=== PATIENT | female | born 1970 | race American Indian/Alaskan Native ===

== ENCOUNTER 2017-10-23 00:20 | Emergency (ER) | payer BC ==
--- NOTE | 2017-10-23 00:39 | ED PDOC ---
Arrival/HPI - General Chief Complaint: High Blood Pressure Time Seen by Provider: 10/23/17 00:26 Historian: Patient - History of Present Illness Narrative History of Present Illness (Text): 10/23/17 00:32 Malissa Saenz is a 47 year old female, whose past medical history includes hypertension and asthma, who presents to the Emergency department complaining of elevated blood pressure tonight. Patient states while at work earlier tonight she began experiencing left arm paresthesias and took her blood pressure , which she noted to be elevated in the 180s systolic. Patient notes she regularly takes Labetalol, Lisinopril, and Norvasc but forgot to take her medications during the day. Patient states she then took Labetalol and Lisinopril, but did not take Norvasc. Patient denies any headache, dizziness, vision changes, chest pain, shortness of breath, or any other complaints. Time/Duration: Other (tonight) Symptom Onset: Gradual Activities at Onset: Light Context: Work Past Medical History - Provider Review Nursing Documentation Reviewed: Yes - Infectious Disease Hx of Infectious Diseases: None - Cardiac Hx Hypertension: Yes - Pulmonary Hx Asthma: Yes - Psychiatric Hx Substance Use: No - Anesthesia Hx Anesthesia: No Family/Social History - Physician Review Nursing Documentation Reviewed: Yes Family/Social History: Unknown Family HX Smoking Status: Never Smoked Hx Alcohol Use: Yes Frequency of alcohol use: Socially Hx Substance Use: No Allergies/Home Meds Allergies/Adverse Reactions: Allergies No Known Allergies Allergy (Verified 10/23/17 00:30) Home Medications: Home Meds Medication Instructions Recorded Confirmed Lisinopril [Zestril] 20 mg PO DAILY 10/23/17 10/23/17 Review of Systems - Physician Review All systems were reviewed & negative as marked: Yes - Review of Systems Constitutional: Normal. absent: Fevers Eyes: Normal ENT: Normal Respiratory: Normal. absent: SOB, Cough Cardiovascular: Other (+high blood pressure). absent: Chest Pain Gastrointestinal: Normal. absent: Abdominal Pain, Diarrhea, Nausea, Vomiting Genitourinary Female: Normal. absent: Dysuria, Frequency, Hematuria, Urine Output Changes Musculoskeletal: Normal. absent: Back Pain, Neck Pain Skin: Normal. absent: Rash Neurological: Other (+left arm parethesias). absent: Dizziness Endocrine: Normal Hemo/Lymphatic: Normal Psychiatric: Normal Physical Exam Vital Signs Reviewed: Yes Vital Signs Temp Pulse Resp BP Pulse Ox 10/23/17 02:28 72 16 171/92 H 100 10/23/17 01:51 72 16 172/76 H 100 10/23/17 01:01 194/106 H 10/23/17 00:36 98.0 F 66 17 194/106 H 100 Temperature: Afebrile Blood Pressure: Hypertensive Pulse: Regular Respiratory Rate: Normal Appearance: Positive for: Well-Appearing, Non-Toxic, Comfortable Pain Distress: None Mental Status: Positive for: Alert and Oriented X 3 - Systems Exam Head: Present: Atraumatic, Normocephalic Pupils: Present: PERRL Extroacular Muscles: Present: EOMI Conjunctiva: Present: Normal Mouth: Present: Moist Mucous Membranes Neck: Present: Normal Range of Motion. No: Meningeal Signs, MIDLINE TENDERNESS , Paraspinal Tenderness Respiratory/Chest: Present: Clear to Auscultation, Good Air Exchange. No: Respiratory Distress, Accessory Muscle Use Cardiovascular: Present: Regular Rate and Rhythm, Normal S1, S2. No: Murmurs Abdomen: No: Tenderness, Distention, Peritoneal Signs Back: Present: Normal Inspection. No: CVA Tenderness, Midline Tenderness, Paraspinal Tenderness Upper Extremity: Present: Normal Inspection, Normal ROM, NORMAL PULSES, Neurovascularly Intact, Capillary Refill < 2s. No: Cyanosis, Edema, Tenderness , Swelling, Erythema, Temperature Abnormalties, Deformity Lower Extremity: Present: Normal Inspection. No: Edema Neurological: Present: GCS=15, CN II-XII Intact, Speech Normal, Motor Func Grossly Intact, Normal Sensory Function, Normal Cerebellar Funct, Memory Normal Skin: Present: Warm, Dry, Normal Color. No: Rashes Psychiatric: Present: Alert, Oriented x 3, Normal Insight, Normal Concentration Medical Decision Making ED Course and Treatment: 10/23/17 00:32 Impression: 47 year old female complaining of high blood pressure and left arm paresthesias tonight Differential Diagnosis included but are not limited to: hypertension Plan: -- CT Head w/o contrast -- EKG -- Norvasc -- Reassess and disposition Progress Notes: 10/23/17 00:41 Reviewed EKG, NSR at [address]-segment elevations or depressions, no T-wave inversions, normal intervals. 10/23/17 01:52 CT Head reviewed, shows: Brain: There is no evidence of intracranial hemorrhage, mass lesion, or mass effect. No abnormal extra-axial or parenchymal fluid collections. The posterior fossa is unremarkable. Ventricles: The ventricles and basilar cisterns are unremarkable. Bones/joints: The bony calvarium is unremarkable. Sinuses: Mild mucosal thickening present in the ethmoid sinuses. Mastoid air cells: Normal as visualized. No mastoid effusion. Soft tissues: Normal. IMPRESSION: There is no acute intracranial process. - RAD Interpretation Radiology Orders: 10/23/17 00:33 HEAD W/O CONTRAST [CT] Stat Refrigerating Machine Operator: Radiologist - EKG Interpretation Interpreted by ED Physician: Yes Type: 12 lead EKG - Medication Orders Current Medication Orders: Discontinued Medications Amlodipine Besylate (Norvasc) 10 mg PO STAT STA Stop: 10/23/17 00:34 Last Admin: 10/23/17 01:01 Dose: 10 mg MAR Blood Pressure Document 10/23/17 01:01 IT (Rec: 10/23/17 01:01 IT [id number]) Blood Pressure Blood Pressure (100/60-150/90 mm Hg) 194/106 - Scribe Statement The provider has reviewed the documentation as recorded by the Scribe Annmarie Carter All medical record entries made by the Scribe were at my direction and personally dictated by me. I have reviewed the chart and agree that the record accurately reflects my personal performance of the history, physical exam, medical decision making, and the department course for this patient. I have also personally directed, reviewed, and agree with the discharge instructions and disposition. Disposition/Present on Arrival - Present on Arrival Any Indicators Present on Arrival: No History of DVT/PE: No History of Uncontrolled Diabetes: No Urinary Catheter: No History of Decub. Ulcer: No History Surgical Site Infection Following: None - Disposition Have Diagnosis and Disposition been Completed?: Yes Diagnosis: Hypertension, Paresthesia Disposition: HOME/ ROUTINE Disposition Time: 02:41 Patient Plan: Discharge Condition: GOOD Discharge Instructions (ExitCare): Paresthesias (DC), High Blood Pressure (DC) Additional Instructions: Maintain your scheduled prescribed doses of medications/follow up with your doctor this week Forms: [employer] ([place])
[2017-10-23 01:52] VITALS: PULSE 72; RESP 16
[2017-10-23 02:48] VITALS: BP 168/86; TEMP 98.2; O2SAT 99
--- NOTE | 2017-10-23 08:33 | CT ---
Date of service: 10/23/2017 PROCEDURE: CT HEAD WITHOUT CONTRAST. HISTORY: paresthesias COMPARISON: None available. TECHNIQUE: Axial computed tomography images were obtained through the head/brain without intravenous contrast. Radiation dose: Total exam DLP = 760.87 mGy-cm. This CT exam was performed using one or more of the following dose reduction techniques: Automated exposure control, adjustment of the mA and/or kV according to patient size, and/or use of iterative reconstruction technique. FINDINGS: HEMORRHAGE: No intracranial hemorrhage. BRAIN: Normal mott-white matter differentiation and density are appreciated throughout the cerebrum and cerebellum with the brainstem appearing unremarkable as well. There is no mass effect. There is no suspicious extra-axial fluid collection and the midline brain anatomy appears diffusely unremarkable. VENTRICLES: Unremarkable. No hydrocephalus. CALVARIUM: Unremarkable. PARANASAL SINUSES: Unremarkable as visualized. No significant inflammatory changes. MASTOID AIR CELLS: Unremarkable as visualized. No inflammatory changes. OTHER FINDINGS: None. IMPRESSION: Unremarkable noncontrast head CT. Concordant preliminary report from [facility], 10/23/2017.
--- NOTE | 2017-10-23 19:25 | CARD ---
APPROVED REPORT Date of service: 10/23/2017 EKG Measurement Heart [id number] [id number] <Conclusion> Normal sinus rhythm Normal ECG
== END 2017-10-23 02:47 | disposition home or self-care (01) ==
LOC: ED 00:20 → MERGE 00:20 → ED 02:47
DX: I10 Essential (primary) hypertension (principal); R20.2 Paresthesia of skin

== ENCOUNTER 2018-05-03 19:09 | Emergency (ER) | payer OTHER ==
[2018-05-03 19:21] VITALS: TEMP 98.5
[2018-05-03] MEDS ORDERED: Labetalol 5 mg/ml Inj 20ML IV STA (19:24)
[2018-05-03] MEDS ORDERED: Labetalol 5mg/ml (4ml) IV STA (19:27)
--- NOTE | 2018-05-03 19:38 | ED PDOC ---
Arrival/HPI <Hussein Metzger - Last Filed: 05/03/18 20:06> - General Historian: Patient - History of Present Illness Narrative History of Present Illness (Text): 05/03/18 19:33 47F w/ pmh htn presenting for complaints of headache on going for a few hours prior to arrival. Patient reports that the headache is located on the Left side of her head located behind her eye. Described as a pressure/squeezing sensation. Symptoms are typically associated with elevation of her blood pressure. Of note pressures are elevated upon presentation; she reports she normally takes norvasc and clonidine for her pressure however she has been having difficulty obtaining medications recently. At time of evaluation patient denies any chest pain, sob, abd pain, n/v/d/c, hematuria/dysuria. Time/Duration: Prior to Arrival Symptom Onset: Gradual Quality: Aching, Pressure Severity Level: 9, Moderate <Jett Owens - Last Filed: 05/03/18 20:21> - General Chief Complaint: Headache Time Seen by Provider: 05/03/18 19:33 Past Medical History - Provider Review Nursing Documentation Reviewed: Yes - Infectious Disease Hx of Infectious Diseases: None - Cardiac Hx Hypertension: Yes - Pulmonary Hx Asthma: Yes - Psychiatric Hx Substance Use: No - Anesthesia Hx Anesthesia: No - Suicidal Assessment Feels Threatened In Home Enviroment: No <Jett Owens - Last Filed: 05/03/18 20:21> Family/Social History - Physician Review Nursing Documentation Reviewed: Yes Family/Social History: Unknown Family HX Smoking Status: 0 Hx Alcohol Use: No Hx Substance Use: No <Jett Owens - Last Filed: 05/03/18 20:21> Allergies/Home Meds <Hussein Metzger - Last Filed: 05/03/18 20:06> <Jett Owens - Last Filed: 05/03/18 20:21> Allergies/Adverse Reactions: Allergies No Known Allergies Allergy (Unverified 05/03/18 19:20) Home Medications: Home Meds Medication Instructions Recorded Confirmed amLODIPine [Norvasc] 1 tab PO DAILY 05/03/18 05/03/18 Review of Systems - Review of Systems Constitutional: Normal Eyes: Normal ENT: Normal Respiratory: Normal Cardiovascular: Normal Gastrointestinal: Normal Genitourinary Female: Normal Musculoskeletal: Normal Skin: Normal Neurological: Headache. absent: Dizziness, Focal Weakness Endocrine: Normal Hemo/Lymphatic: Normal Psychiatric: Normal <Jett Owens - Last Filed: 05/03/18 20:21> Physical Exam Vital Signs Temp Pulse Resp BP Pulse Ox 05/03/18 19:20 98.5 F 87 18 169/104 H 97 <Hussein Metzger - Last Filed: 05/03/18 20:06> Vital Signs Temp Pulse Resp BP Pulse Ox 05/03/18 19:20 98.5 F 87 18 169/104 H 97 Temperature: Afebrile Blood Pressure: Hypertensive Pulse: Regular Respiratory Rate: Normal Appearance: Positive for: Well-Appearing, Non-Toxic, Comfortable Pain Distress: None Mental Status: Positive for: Alert and Oriented X 3 - Systems Exam Head: Present: Atraumatic, Normocephalic Pupils: Present: PERRL Extroacular Muscles: Present: EOMI Conjunctiva: Present: Normal Mouth: Present: Moist Mucous Membranes Neck: Present: Normal Range of Motion Respiratory/Chest: Present: Clear to Auscultation, Good Air Exchange. No: Respiratory Distress, Accessory Muscle Use Cardiovascular: Present: Regular Rate and Rhythm, Normal S1, S2. No: Murmurs Abdomen: No: Tenderness, Distention, Peritoneal Signs Back: Present: Normal Inspection Upper Extremity: Present: Normal Inspection. No: Cyanosis, Edema Lower Extremity: Present: Normal Inspection. No: Edema Neurological: Present: GCS=15, CN II-XII Intact, Speech Normal Skin: Present: Warm, Dry, Normal Color. No: Rashes Psychiatric: Present: Alert, Oriented x 3, Normal Insight, Normal Concentration <Jett Owens - Last Filed: 05/03/18 20:21> Medical Decision Making - Lab Interpretations Lab Results: Total Bilirubin 0.5 mg/dL (0.2-1.3) 05/03/18 19:35 AST 17 U/L (14-36) 05/03/18 19:35 ALT 15 U/L (7-56) 05/03/18 19:35 Alkaline Phosphatase 123 U/L (38-126) 05/03/18 19:35 Total Protein 8.4 g/dL (5.8-8.3) H 05/03/18 19:35 Albumin 4.6 g/dL (3.0-4.8) 05/03/18 19:35 Globulin 3.8 gm/dL 05/03/18 19:35 Albumin/Globulin Ratio 1.2 (1.1-1.8) 05/03/18 19:35 Urine Color Yellow (YELLOW) 05/03/18 19:35 Urine Appearance Clear (CLEAR) 05/03/18 19:35 Urine pH 7.0 (4.7-8.0) 05/03/18 19:35 Ur Specific [place] 1.020 (1.005-1.035) 05/03/18 19:35 Urine Protein Negative mg/dL (<30 mg/dL) 05/03/18 19:35 Urine Glucose (UA) Negative mg/dL (NEGATIVE) 05/03/18 19:35 Urine Ketones Negative mg/dL (NEGATIVE) 05/03/18 19:35 Urine Blood Negative (NEGATIVE) 05/03/18 19:35 Urine Nitrate Negative (NEGATIVE) 05/03/18 19:35 Urine Bilirubin Negative (NEGATIVE) 05/03/18 19:35 Urine Urobilinogen 0.2 E.U./dL (<1 E.U./dL) 05/03/18 19:35 Ur Leukocyte Esterase Negative Michelle/uL (NEGATIVE) 05/03/18 19:35 05/03/18 19:35 05/03/18 19:35 Lab Results 05/03/18 19:35: Sodium 142, Potassium 3.7, Chloride 101, Carbon Dioxide 32, Anion Gap 12, BUN 17, Creatinine 0.8, Est GFR ( Amer) > 60, Est GFR (Non- Af Amer) > 60, Random Glucose 109, Calcium 9.8, Magnesium 2.0, Total Bilirubin 0.5, AST 17, ALT 15, Alkaline Phosphatase 123, Troponin I Pending, NT-Pro-B Natriuret Pep Pending, Total Protein 8.4 H, Albumin 4.6, Globulin 3.8, Albumin/Globulin Ratio 1.2 05/03/18 19:35: Urine Color Yellow, Urine Appearance Clear, Urine pH 7.0, Ur Specific [place] 1.020, Urine Protein Negative, Urine Glucose (UA) Negative, Urine Ketones Negative, Urine Blood Negative, Urine Nitrate Negative, Urine Bilirubin Negative, Urine Urobilinogen 0.2, Ur Leukocyte Esterase Negative 05/03/18 19:35: WBC 7.9, RBC 5.85, Hgb 13.3, Hct 41.7, MCV 71.3 L, MCH 22.7 L, MCHC 31.9, RDW 15.4 H, Plt Count 314, MPV 9.7, Neut % (Auto) 47.8 L, Lymph % (Auto) 44.2 H, [place] % (Auto) 4.6, Eos % (Auto) 3.0, Baso % (Auto) 0.4, Lymph # (Auto) 3.5 H, [place] # (Auto) 0.4, Eos # (Auto) 0.2, Baso # (Auto) 0.03, Absolute Neuts (auto) 3.78 I have reviewed the lab results: Yes - EKG Interpretation EKG Interpretation (Text): 05/03/18 20:07 NSR @ 71bpm No ST elevations No T wave inversions, flattened T waves Interpreted by ED Physician: Yes Type: 12 lead EKG - Medication Orders Current Medication Orders: Discontinued Medications Acetaminophen (Tylenol 325mg Tab) 650 mg PO STAT STA Stop: 05/03/18 19:25 Last Admin: 05/03/18 19:47 Dose: 650 mg Labetalol HCl (Trandate) 20 mg IV STAT STA Stop: 05/03/18 19:28 Last Admin: 05/03/18 19:47 Dose: 20 mg eMAR Start Stop Document 05/03/18 19:47 CNR (Rec: 05/03/18 19:47 CNR [id number]) Intravenous Solution Start Date 05/03/18 Start Time 19:45 End Date 05/03/18 End time 19:47 Total Infusion Time 2 Metoclopramide HCl (Reglan) 10 mg IVP STAT STA Stop: 05/03/18 19:25 Last Admin: 05/03/18 19:44 Dose: 10 mg IVP Administration Document 05/03/18 19:44 CNR (Rec: 05/03/18 19:47 CNR [id number]) Charges for Administration # of IVP Administrations 1 <Hussein Metzger - Last Filed: 05/03/18 20:06> ED Course and Treatment: 05/03/18 19:54 Impression: 47F w/ a PMH of HTN non complaint w/ RX presenting w/ complaints of headache and elevated pressures Plan: R/o end organ damage Control headache CBC/CMP UA Trop BNP Labetolol Tylenol Reglan Progress Notes: 05/03/18 20:16 CBC/CMP UA TROP BNP all within normal limits headache significantly improved Repeat blood pressure 148/78 Patient discharged w/ appropriate follow up instructions - Medication Orders Current Medication Orders: Discontinued Medications Acetaminophen (Tylenol 325mg Tab) 650 mg PO STAT STA Stop: 05/03/18 19:25 Labetalol HCl (Trandate) 20 mg IV STAT STA Stop: 05/03/18 19:28 Metoclopramide HCl (Reglan) 10 mg IVP STAT STA Stop: 05/03/18 19:25 <Jett Owens - Last Filed: 05/03/18 20:21> Disposition/Present on Arrival <Hussein Metzger - Last Filed: 05/03/18 20:06> - Present on Arrival Any Indicators Present on Arrival: No History of DVT/PE: No History of Uncontrolled Diabetes: No Urinary Catheter: No History of Decub. Ulcer: No History Surgical Site Infection Following: None - Disposition Have Diagnosis and Disposition been Completed?: Yes Disposition Time: 20:21 Patient Plan: Discharge <Jett Owens - Last Filed: 05/03/18 20:21> - Disposition Diagnosis: Hypertensive urgency Disposition: HOME/ ROUTINE Condition: IMPROVED Discharge Instructions (ExitCare): High Blood Pressure (DC), DASH Diet Prescriptions: amLODIPine [Norvasc] 10 mg PO DAILY #20 tab Referrals: FAMILY PROVIDER,NO [Primary Care Provider] - Follow up with primary Forms: [employer] for Smartphones ([place])
[2018-05-03 19:47] LABS: BASO # 0.03 K/mm3 (0.0-2.0); BASO % 0.4 % (0.0-3.0); EOS # 0.2 (0.0-0.7); HEMOGLOBIN 13.3 g/dL (12.0-16.0); LYMPH # 3.5 (1.2-3.4); LYMPH % 44.2 % (22.0-35.0); MEAN CELL VOLUME 71.3 fl (80.0-105.0); MEAN CORPUSCULAR HEMOGLOBIN 22.7 pg (25.0-35.0); MEAN CORPUSCULAR HGB CONC 31.9 g/dl (31.0-37.0); MEAN PLATELET VOLUME 9.7 fl (7.0-11.0); MONO # 0.4 (0.1-0.6); MONO % 4.6 % (1.0-6.0); RBC 5.85 10^6/uL (3.5-6.1); RED CELL DISTRIBUTION WIDTH 15.4 % (11.5-14.5); WHITE BLOOD COUNT 7.9 10^3/uL (4.5-11.0)
[2018-05-03 19:57] LABS: URINE APPEARANCE CLEAR (CLEAR); URINE BILIRUBIN NEGATIVE (NEGATIVE); URINE BLOOD NEGATIVE (NEGATIVE); URINE COLOR YELLOW (YELLOW); URINE GLUCOSE (UA) NEGATIVE (NEGATIVE); URINE LEUKOCYTE ESTERASE NEGATIVE Leu/uL (NEGATIVE); URINE PROTEIN NEGATIVE mg/dL (<30 mg/dL); URINE UROBILINOGEN 0.2 E.U./dL (<1 E.U./dL)
[2018-05-03 19:58] LABS: ALB/GLOB RATIO 1.2 (1.1-1.8); ALBUMIN 4.6 g/dL (3.0-4.8); ALT/SGPT 15 U/L (7-56); AST/SGOT 17 U/L (14-36); BLOOD UREA NITROGEN 17 mg/dL (7-21); CALCIUM 9.8 mg/dL (8.4-10.5); GFR NON-AFRICAN AMERICAN > 60
[2018-05-03 20:09] LABS: B-TYPE NATRIURETIC PEPTIDE 64.9 pg/mL (0-450); TROPONIN I < 0.01 ng/mL
[2018-05-03 20:27] VITALS: BP 148/78; PULSE 69; RESP 17; O2SAT 100
--- NOTE | 2018-05-04 09:39 | CARD ---
APPROVED REPORT Date of service: 05/03/2018 EKG Measurement Heart [id number] 160P39 [id number] <Conclusion> Normal sinus rhythm Possible Left atrial enlargement Nonspecific T wave abnormality
== END 2018-05-03 20:30 | disposition home or self-care (01) ==
LOC: ED 19:09
DX: I16.0 Hypertensive urgency (principal)
CPT/HCPCS: 80053; 81003; 81025; 83735; 83880; 84484; 85025; 93005; 96374; 99285; J2765